=== PATIENT | female | born 1945 | race Caucasian/White ===

== ENCOUNTER 2016-12-19 18:36 | Inpatient (IN) ==
[2016-12-19] MEDS ORDERED: 0.9 % Sodium Chloride 1,000 ML IVC ONE ×2 (19:20→23:50)
[2016-12-19] MEDS ORDERED: Ondansetron 4 MG/2 ML VIAL IVP ONE (19:20)
[2016-12-19] MEDS ORDERED: *HR* Morphine 2 MG/ML SYRINGE IVP ONE (19:20)
[2016-12-19 19:40] LABS: Basophils % 0.1 %; Hematocrit 36.8 % (35.3-44.9); Hemoglobin 11.9 g/dL (11.5-15.4); Immature Granulocytes % 0.4 % (0-4); Lymphocytes # 1.2 K/mcL (0.6-4.6); Lymphocytes % 8.6 %; Mean Corpuscular HGB Conc 32.3 g/dL (31.6-35.5); Mean Corpuscular Hemoglobin 29.6 pg (28.0-33.3); Mean Corpuscular Volume 91.5 fL (83.0-100.0); Mean Platelet Volume 10.3 fL (9.4-12.4); Monocytes # 0.6 K/mcL (0.0-1.3); Neutrophils # 12.1 K/mcL (1.6-8.9); Platelet Count 187 K/mcL (140-400); Red Blood Count 4.02 M/mcL (3.82-4.97); Red Cell Distribution Width 13.5 % (11.5-14.5); Segmented Neutrophils % 86.9 %
[2016-12-19 19:44] LABS: INR 1.3; Prothrombin Time 13.7 Seconds (9.4-12.1)
[2016-12-19 19:55] LABS: Alanine Aminotransferase 15 Units/L (0-55); Albumin 3.2 g/dL (3.5-5.0); Albumin/Globulin Ratio 0.8 (1.1-2.2); Alkaline Phosphatase 81 Units/L (38-126); Amylase 31 Units/L (25-125); Aspartate Amino Transferase 15 Units/L (5-34); BUN/Creatinine Ratio 29 (6-26); Bilirubin,Direct 0.4 mg/dL (0.0-0.5); Bilirubin,Indirect 0.2 mg/dL (0.0-1.2); Bilirubin,Total 0.6 mg/dL (0.2-1.2); Blood Urea Nitrogen 19 mg/dL (7-20); Calcium 9.2 mg/dL (8.6-10.8); Carbon Dioxide 25 mEq/L (19-29); Chloride 103 mEq/L (98-109); Globulin 3.9 g/dL (2.4-3.5); Glucose 121 mg/dL (70-99); Osmolality,Calculated 288 (280-300); Potassium 3.8 mEq/L (3.5-4.5); Sodium 137 mEq/L (136-145); Total Protein 7.1 g/dL (6.0-8.3); eGFR For African Americans > 60 (> 60); eGFR For Non-African Americans > 60 (> 60)
[2016-12-19 19:57] LABS: Lipase < 10 Units/L (8-78)
[2016-12-19 20:17] LABS: Bilirubin,Urine Negative (Negative); Blood,Urine Negative (Negative); Clarity,Urine Cloudy (Clear); Color,Urine Dark Yellow (Yellow); Glucose,Urine (UA) Normal (Normal); Ketones,Urine 80 mg/dL (Negative); Leukocyte Esterase,Urine Moderate (Negative); Nitrite,Urine Negative (Negative); PH,Urine 6.5 pH Units (5.0-8.0); Protein,Urine 30 mg/dL (Neg-Trace); Specific Gravity,Urine 1.027 (1.010-1.025); Urobilinogen,Urine Normal (Normal)
[2016-12-19 20:28] LABS: Mucus,Urine Moderate (Few); Renal Epithelial Cells,Urine Few per hpf (None-Few); Squamous Epithelial Cell,Urine Few per lpf (None-Few)
[2016-12-19 20:29] LABS: RBC,Urine 0-3 per hpf (0-3)
[2016-12-19 20:30] LABS: Bacteria,Urine Few per hpf (None-Few)
[2016-12-19] MEDS ORDERED: Piperacillin/Tazobactam 3.375 GM in D5% in Water 50 ML IVPB ONE (21:44)
[2016-12-19] MEDS ORDERED: *HR* FentaNYL (PF) 100 MCG/2 ML VIAL IVP ONE (22:36)
[2016-12-19] MEDS ORDERED: Lidocaine -MPF 2% 2 ML VIAL ONE ×2 (23:04→23:06)
[2016-12-19] MEDS ORDERED: *HR* Rocuronium Bromide 50 MG/5 ML VIAL ONE (23:04)
[2016-12-19] MEDS ORDERED: Lidocaine -MPF 4% 5 ML AMPUL ONE (23:04)
[2016-12-19] MEDS ORDERED: *HR* Propofol 200 MG/20 ML VIAL IVP ONE (23:05)
[2016-12-19] MEDS ORDERED: *HR* Midazolam HCl 2 MG/2 ML VIAL ONE (23:05)
[2016-12-19] MEDS ORDERED: *HR* FentaNYL (PF) 100 MCG/2 ML VIAL ONE (23:05)
--- NOTE | 2016-12-19 23:39 | Emergency Department Note ---
Disposition Clinical Impression: Pneumoperitoneum of unknown etiology Disposition: Admitted As Inpatient Condition: Fair General Adult HPI - General Chief complaint: ED Abdominal Pain Stated complaint: abdominal pain Time Seen by Provider: 12/19/16 18:46 Source: EMS Limitations: no limitations Nursing Notes Reviewed: Yes Vital Signs Reviewed: Yes - History of Present Illness HPI Narrative: 71-year-old female presents with abdominal pain that started today. Surgical history includes appendectomy, hysterectomy. No significant medical history. Admits to anorexia, nausea, ongoing abdominal pain which worsened with sitting forward. No fever or chills. No abdominal trauma recently. General: No acute distress HEENT: Pupils equal and reactive to light, extraoccular muscle movement is normal, TMS are clear bilaterally. Heart: RRR, No murmor rub or gallop Lungs: lungs clear, no wheezing, rales or ronchi. ABD: Tender diffusely Extremities: No cyanosis, clubbing or edema Neuro: CN 2-12 in tact, no focal deficit. strength 5/5. Medical decision making CT scan is concerning for pneumoperitoneum. Possible etiology of perforated duodenal ulcer. Dr. Niño at bedside for evaluation. Plan to transfer to operating room for surgical intervention. Zosyn given at discretion of Dr. Niño. IV fluids were administered. Remain nothing by mouth. Pain Scale: 7 - Related Data Allergies Allergy/AdvReac Type Severity Reaction Status Date / Time azithromycin [From Zithromax] AdvReac Hives Verified 12/19/16 18:43 gluten AdvReac Gastrointestinal Verified 12/19/16 18:43 Upset phenytoin [From Dilantin] AdvReac Hives Verified 12/19/16 18:43 Sulfa (Sulfonamide AdvReac Hives Verified 12/19/16 18:43 Antibiotics) All systems ED: reviewed and negative except as stated. Past Medical History - Past Medical History Medical history: Reports: GERD, hypertension Psychiatric history: Reports: no psych history - Social History Smoking Status: Never smoker Smokeless Tobacco Status: No Alcohol use: Reports: none Drug use: Reports: none Physical Exam - General Limitations: no limitations General appearance: alert Course Vital Signs Temperature 98.6 F 12/19/16 18:44 Pulse Rate 90 12/19/16 18:44 Respiratory Rate 18 12/19/16 18:44 Blood Pressure 119/73 12/19/16 18:44 O2 Sat by Pulse Oximetry 98 12/19/16 18:44 Temperature 98.6 F 12/19/16 18:44 Pulse Rate 81 12/19/16 22:39 Respiratory Rate 16 12/19/16 23:17 Blood Pressure 134/69 12/19/16 23:17 O2 Sat by Pulse Oximetry 98 12/19/16 22:39 Oxygen Delivery Oxygen Delivery Room Air Medical Decision Making - Lab Data Result diagrams: 12/19/16 19:30 12/19/16 19:30 Lab Results 12/19/16 12/19/16 12/19/16 Range/Units 19:30 19:30 19:30 WBC 13.9 H (4.3-11.1) K/mcL RBC 4.02 (3.82-4.97) M/mcL Hgb 11.9 (11.5-15.4) g/dL Hct 36.8 (35.3-44.9) % MCV 91.5 (83.0-100.0) fL MCH 29.6 (28.0-33.3) pg MCHC 32.3 (31.6-35.5) g/dL RDW 13.5 (11.5-14.5) % Plt Count 187 (140-400) K/mcL MPV 10.3 (9.4-12.4) fL Immature Gran % 0.4 (0-4) % Seg Neutrophils % 86.9 % Lymphocytes % 8.6 % Monocytes % 4.0 % Eosinophils % 0.0 % Basophils % 0.1 % Neutrophils # 12.1 H (1.6-8.9) K/mcL Lymphocytes # 1.2 (0.6-4.6) K/mcL Monocytes # 0.6 (0.0-1.3) K/mcL Eosinophils # 0.0 (0.0-0.6) K/mcL Basophils # 0.0 (0.0-0.2) K/mcL Immature Plt Fraction 5.0 (1.1-6.1) % PT 13.7 H (9.4-12.1) Seconds INR 1.3 Sodium 137 (136-145) mEq/L Potassium 3.8 (3.5-4.5) mEq/L Chloride 103 (98-109) mEq/L Carbon Dioxide 25 (19-29) mEq/L BUN 19 (7-20) mg/dL Creatinine 0.65 (0.57-1.11) mg/dL Est GFR ( Amer) > 60 (> 60) Est GFR (Non-Af Amer) > 60 (> 60) BUN/Creatinine Ratio 29 H (6-26) Glucose 121 H (70-99) mg/dL Calculated Osmolality 288 (280-300) Lactic Acid (0.5-2.2) mmol/L Calcium 9.2 (8.6-10.8) mg/dL Total Bilirubin 0.6 (0.2-1.2) mg/dL Direct Bilirubin 0.4 (0.0-0.5) mg/dL Indirect Bilirubin 0.2 (0.0-1.2) mg/dL AST 15 (5-34) Units/L ALT 15 (0-55) Units/L Alkaline Phosphatase 81 (38-126) Units/L Troponin I (0-0.03) ng/mL Serum Total Protein 7.1 (6.0-8.3) g/dL Albumin 3.2 L (3.5-5.0) g/dL Globulin 3.9 H (2.4-3.5) g/dL Albumin/Globulin Ratio 0.8 L (1.1-2.2) Amylase 31 (25-125) Units/L Lipase < 10 (8-78) Units/L Urine Color (Yellow) Urine Clarity (Clear) Urine pH (5.0-8.0) pH Units Ur Specific [place] (1.010-1.025) Urine Protein (Neg-Trace) mg/dL Urine Glucose (UA) (Normal) mg/dL Urine Ketones (Negative) mg/dL Urine Blood (Negative) Urine Nitrite (Negative) Urine Bilirubin (Negative) Urine Urobilinogen (Normal) mg/dL Ur Leukocyte Esterase (Negative) Urine Microscopic RBC (0-3) per hpf Urine Microscopic WBC (0-3) per hpf Ur Squamous Epith Cells (None-Few) per lpf Ur Renal Epithelial Cell (None-Few) per hpf Urine Bacteria (None-Few) per hpf Urine Mucus (Few) Ur Culture Indicated? (NO) 12/19/16 12/19/16 12/19/16 Range/Units 19:30 19:30 20:10 WBC (4.3-11.1) K/mcL RBC (3.82-4.97) M/mcL Hgb (11.5-15.4) g/dL Hct (35.3-44.9) % MCV (83.0-100.0) fL MCH (28.0-33.3) pg MCHC (31.6-35.5) g/dL RDW (11.5-14.5) % Plt Count (140-400) K/mcL MPV (9.4-12.4) fL Immature Gran % (0-4) % Seg Neutrophils % % Lymphocytes % % Monocytes % % Eosinophils % % Basophils % % Neutrophils # (1.6-8.9) K/mcL Lymphocytes # (0.6-4.6) K/mcL Monocytes # (0.0-1.3) K/mcL Eosinophils # (0.0-0.6) K/mcL Basophils # (0.0-0.2) K/mcL Immature Plt Fraction (1.1-6.1) % PT (9.4-12.1) Seconds INR Sodium (136-145) mEq/L Potassium (3.5-4.5) mEq/L Chloride (98-109) mEq/L Carbon Dioxide (19-29) mEq/L BUN (7-20) mg/dL Creatinine (0.57-1.11) mg/dL Est GFR ( Amer) (> 60) Est GFR (Non-Af Amer) (> 60) BUN/Creatinine Ratio (6-26) Glucose (70-99) mg/dL Calculated Osmolality (280-300) Lactic Acid 0.7 (0.5-2.2) mmol/L Calcium (8.6-10.8) mg/dL Total Bilirubin (0.2-1.2) mg/dL Direct Bilirubin (0.0-0.5) mg/dL Indirect Bilirubin (0.0-1.2) mg/dL AST (5-34) Units/L ALT (0-55) Units/L Alkaline Phosphatase (38-126) Units/L Troponin I 0.01 (0-0.03) ng/mL Serum Total Protein (6.0-8.3) g/dL Albumin (3.5-5.0) g/dL Globulin (2.4-3.5) g/dL Albumin/Globulin Ratio (1.1-2.2) Amylase (25-125) Units/L Lipase (8-78) Units/L Urine Color Dark Yellow (Yellow) Urine Clarity Cloudy A (Clear) Urine pH 6.5 (5.0-8.0) pH Units Ur Specific [place] 1.027 H (1.010-1.025) Urine Protein 30 H (Neg-Trace) mg/dL Urine Glucose (UA) Normal (Normal) mg/dL Urine Ketones 80 H (Negative) mg/dL Urine Blood Negative (Negative) Urine Nitrite Negative (Negative) Urine Bilirubin Negative (Negative) Urine Urobilinogen Normal (Normal) mg/dL Ur Leukocyte Esterase Moderate H (Negative) Urine Microscopic RBC 0-3 (0-3) per hpf Urine Microscopic WBC 5-15 H (0-3) per hpf Ur Squamous Epith Cells Few (None-Few) per lpf Ur Renal Epithelial Cell Few (None-Few) per hpf Urine Bacteria Few (None-Few) per hpf Urine Mucus Moderate H (Few) Ur Culture Indicated? YES A (NO) Critical Care Time Critical Care Time: Yes Total Critical Care Time: 35 Attestation: Findings consistent with pneumoperitoneum. Patient was taken emergently to the operating room. Greater than 35 minutes of critical care time was better assess tenderness acutely ill patient with surgical abdominal emergency. Critical care time was excluding billable procedures.
[2016-12-19] MEDS: Ringers Solution, Lactated 1,000 ML ONE (23:40)
[2016-12-19] MEDS ORDERED: Ondansetron 4 MG/2 ML VIAL IVP PRN (23:50)
--- NOTE | 2016-12-19 23:56 | General Surg History&Physical ---
Date of Encounter: 12/19/16 Time of Encounter: 23:54 Assessment and Plan (1) Pneumoperitoneum of unknown etiology Current Visit: Yes Status: Acute 71F with significant abdominal pain, leukocytosis, free air; concern for perforated viscus - NPO _IVF -ABX - pain control - consent for ex lap The assessment and plan as outlined above was discussed with the patient and/or family members who expressed understanding and agreement. All questions were answered. History of Present Illness Chief complaint: abdominal pain HPI: Ms. Parra is a 71 year old female who presents with 1 day history of worsening abdominal pain. The pain is localized to mid abdomen and R abdomen, non radiating with no identifiable alleviating or exacerbating factors; (-) fevers, chills, chest pain, shortness of breath. NO associated diarrhea. Due to the severity of the pain she presented to the ED for further evaluation. Past Med Surg Social Fam HX - Past Medical History Medical history: GERD, hypertension Psychiatric history: no psych history - Past Surgical History Surgical History: appendectomy, hysterectomy - Social History Smoking Status: Never smoker Smokeless Tobacco Status: No Alcohol use: none Drug use: none - Additional Family History Additional family history: non contributory Medications and Allergies 3 Allergy/AdvReac Type Severity Reaction Status Date / Time azithromycin [From Zithromax] AdvReac Hives Verified 12/19/16 18:43 gluten AdvReac Gastrointestinal Verified 12/19/16 18:43 Upset phenytoin [From Dilantin] AdvReac Hives Verified 12/19/16 18:43 Sulfa (Sulfonamide AdvReac Hives Verified 12/19/16 18:43 Antibiotics) Review of Systems All systems PM: A 10-system review of systems was performed and is negative for pertinent findings except as documented above in the HPI. General Surgery Exam Initial Vital Signs Temp Pulse Resp BP Pulse Ox 98.6 F 90 18 119/73 98 12/19/16 18:44 12/19/16 18:44 12/19/16 18:44 12/19/16 18:44 12/19/16 18:44 - General physical appearance well developed, well nourished, no distress - Eyes other (no scleral icterus) - Respiratory normal expansion, normal respiratory effort, clear to auscultation - Cardiovascular Cardiovascular exam: Present: RRR - Abdomen Abdomen general surgery: Present: soft, tender ((-)garcia's; pain primarily at R side/RLQ) Abdominal Tenderness: Present: RLQ Hernia: Present: none - Integumentary Integumentary general surgery: Present: warm and dry - Neurologic Present: CN 2-12 grossly intact - Psychiatric Psychiatric general surgery: Present: A&Ox3 Results - Labs 12/19/16 19:30 12/19/16 19:30 Abnormal lab results WBC 13.9 K/mcL (4.3-11.1) H 12/19/16 19:30 Neutrophils # 12.1 K/mcL (1.6-8.9) H 12/19/16 19:30 PT 13.7 Seconds (9.4-12.1) H 12/19/16 19:30 BUN/Creatinine Ratio 29 (6-26) H 12/19/16 19:30 Glucose 121 mg/dL (70-99) H 12/19/16 19:30 Albumin 3.2 g/dL (3.5-5.0) L 12/19/16 19:30 Globulin 3.9 g/dL (2.4-3.5) H 12/19/16 19:30 Albumin/Globulin Ratio 0.8 (1.1-2.2) L 12/19/16 19:30 Urine Clarity Cloudy (Clear) A 12/19/16 20:10 Ur Specific [place] 1.027 (1.010-1.025) H 12/19/16 20:10 Urine Protein 30 mg/dL (Neg-Trace) H 12/19/16 20:10 Urine Ketones 80 mg/dL (Negative) H 12/19/16 20:10 Ur Leukocyte Esterase Moderate (Negative) H 12/19/16 20:10 Urine Microscopic WBC 5-15 per hpf (0-3) H 12/19/16 20:10 Urine Mucus Moderate (Few) H 12/19/16 20:10 Ur Culture Indicated? YES (NO) A 12/19/16 20:10 All other labs normal. - Imaging CT scan - abdomen: report reviewed, image reviewed CT scan - pelvis: report reviewed (free air, thickening near duodenum; (+) diverticulosis; no obvious inflammation near sigmoid; no abscess), image reviewed
--- NOTE | 2016-12-19 23:57 | Anesthesia Evaluation PreOp ---
Date of Encounter: 12/19/16 Time of Encounter: 23:54 - Past History Planned Operation: Expl Lap Cardiac History: HTN (maintained on Metoprolol), Other (Hx MVP s/p MV repair 2012. ECHO 04.22.2015 - LVEF - 60%, mild LV dysfx, Moderate LAE, Mild Aortic Regurg. NO evidence of PUlm HTN. 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), Other (Vertigo maintained on Meclizine) Other Medical History: Renal (REcurrent UTIs,), GERD (IBS) Anesthesia History: No Prior Anesthetic Complications, Past Anesthesia ( Colonoscopy, Endoscopy, Mitral Valve Repair 10/2012, Appy 1983, Hyster 1995,) Alcohol Use: none Drug use: none Medications and Allergies 3 Allergy/AdvReac Type Severity Reaction Status Date / Time azithromycin [From Zithromax] AdvReac Hives Verified 12/19/16 18:43 gluten AdvReac Gastrointestinal Verified 12/19/16 18:43 Upset phenytoin [From Dilantin] AdvReac Hives Verified 12/19/16 18:43 Sulfa (Sulfonamide AdvReac Hives Verified 12/19/16 18:43 Antibiotics) - Meds/Allergy Pre-op Review Medications Reviewed: Yes Allergies Reviewed: Yes Beta Blockers on Current Med List: Yes (Metoprolol) If Beta Blockers taken, Date/Time (Last Dose taken): 12/19/16 @ 1700 Anesthesia Results - Labs 12/19/16 19:30 12/19/16 19:30 Laboratory Results Impressions Abdomen/Pelvis CT 12/19/16 19:20 IMPRESSION: 1. Pneumoperitoneum with multiple locules intraperitoneal gas centered around the 1st portion of the duodenum. Findings compatible with perforated viscus and are highly suggestive of perforated duodenal ulcer given the focal extraluminal gas surrounding the duodenum. 2. Soft tissue gas within the anterior chest wall with nodular density within the left breast with central hyperattenuating focus within the nodular density. Findings suggestive of changes of recent biopsy. Recommend clinical correlation for recent procedure to the left breast. 3. Colonic diverticulosis with wall thickening of the sigmoid colon which is nonspecific. Findings may be related to chronic diverticular disease, however, recommend correlation with recent colonoscopy. No definite diverticulitis identified. 4. 7 mm nonobstructing right renal stone. D/ / Sage Olivarez MD / Sage Olivarez MD Interpreting Provider: Sage Olivarez MD Anesthesia Exam Vital Signs Temp Pulse Resp BP Pulse Ox 12/19/16 23:17 16 134/69 12/19/16 22:39 81 16 137/69 98 12/19/16 21:37 70 16 111/60 97 12/19/16 19:49 74 16 128/69 100 12/19/16 18:44 98.6 F 90 18 119/73 98 Intake and Output 12/19/16 12/19/16 12/19/16 07:59 15:59 23:59 Other: Stool Characteristics Normal for Patient Stool Color Brown Weight 48.534 kg Patient Weight 12/19/16 23:59 Weight 48.534 kg Height: 5'4" Weight: 140# BMI = 20 NPO (# of Hours): 0800 Water, [Solids/Food - >24hrs] Pain Scale Used: Numeric (1 - 10) - HEENT Pupil (Motor): Pupils equal, EOMI Mallampati: III Teeth: Normal Oral Opening: Less than or equal to 3 (recessed mandible with protruding teeth. DENIES hx of difficult airway) - AUGER MILL OPERATOR LOC: Oriented, Confused AUGER MILL OPERATOR Sensory: Normal: RUE, LUE, RLE, LLE, Face - Cardiac Rhythm: Regular Murmur: None - Pulmonary Breath Sounds: bilateral Clear Respiratory Effort: Symmetrical Anesthesia Assess/Plan ASA Score: 2, E Modified [place] Scale for Level of Consciousness: Cooperative, oriented, and tranquil Anesthetic Plan: General Monitoring Plan: Standard Monitors Recovery Plan: PACU Anes Supervising Prov Stmt: Pt seen/evaluated, R&B Discussed, questions answered and consent obtained. Benito Choudhury MD
[2016-12-20] MEDS ORDERED: Acetaminophen IV 1,000 MG/100 ML INFUS..BTL ONE (00:13)
[2016-12-20] MEDS ORDERED: Lacri-Lube 3.5 GM TUBE ONE (00:37)
[2016-12-20] MEDS ORDERED: EPHEDrine 50 MG/ML VIAL ONE (00:42)
[2016-12-20] MEDS ORDERED: Dexamethasone 4 MG/ML VIAL ONE (01:38)
[2016-12-20] MEDS ORDERED: Ondansetron 4 MG/2 ML VIAL ONE (01:38)
[2016-12-20] MEDS ORDERED: *HR* Magnesium Sulfate 1 GM/2 ML VIAL ONE (01:40)
[2016-12-20] MEDS ORDERED: Neostigmine Methylsulfate 3 MG/3 ML SYRINGE ONE (01:46)
[2016-12-20] MEDS: Ringers Solution, Lactated 1,000 ML ONE (02:02)
[2016-12-20] MEDS ORDERED: *HR* HYDROmorphone 2 MG/ML SYRINGE ONE (02:17)
--- NOTE | 2016-12-20 02:47 | Operative Note ---
Date of procedure: 12/20/16 Pre-op diagnosis: perforated viscus Post-op diagnosis: other (negative ex lap) Procedure: exploratory laparotomy Implants: none Complications: none Anesthesia: BUSHRA Surgeon: Fercho Niño Slab Tripper Other: Alberto Samayoa Estimated blood loss (cc): 20 Specimen: none Condition: stable Disposition: PACU Procedure in Detail: Patient was brought into the operating room suite. Placed in the supine position. SCDs were placed. The patient underwent smooth induction of anesthesia. preoperative antibiotics were given. A schrader catheter was placed using sterile technique. The patient was prepped and draped in the usual fashion. A timeout was held identifying correct patient pathology and procedure. After the agreement I began the procedure. I started by creating a limited upper midline incision. Dissected through the soft tissue using electrocautery until I was in the abdomen. I quickly identified the stomach. More specifically I was able to identify the pylorus. I went on to investigate the duodenum. I had limited exposure but was not able to appreciate any gastric and bilious contamination. I then extended the incision and ran the bowel from the ligament of treitz to the rectum. There was NO evidence of gross abdominal spillage of enteric or colonic contents. No evidence of ischemia, obstruction, or non viability of bowel. I investigated down into the pelvis. I then started at the top again, beginning with the stomach. At the duodenum, I performed a full linnea maneuver. I was able to appreciate the head of the pancreas. I also inserted my finger into the lesse sac. Again there was no contamination. I ran the bowel again. No evidence of bowel perforation, intraabdominal contamination, ischemia, obstruction. I filled the abdomen with saline. Occluded the 3rd portion of the duodenum and asked anesthesia to insufflate the stomach using the NG tube. There was no evidence of bubbles to suggest perforation. I ran the bowel again. At this point I concluded that the CT scan my intraoperative findings did not match. I decided to conclude the procedure. The only thing to mention was that her rectum was full of soft stool. I did not appreciate any significant diverticulosis or diverticulitis nor any pelvic abscesses or interloop adhesions. I closed the fascia usng a looped PDS in a running fashion. I used 3-0 vicryl to close the dermal layer. I used the skin stapler to reapproximate the skin. The patient tolerated the procedure well and was transported to PACU in stable condition
--- NOTE | 2016-12-20 03:03 | Anesthesia Evaluation Post Op ---
Date of Encounter: 12/20/16 Time of Encounter: 03:02 - Vital Signs Vital Signs: Vital Signs/O2 Sat/Glucose, Most Current Temp Pulse Resp BP Pulse Ox 12/20/16 02:54 99.4 F 71 16 134/68 95 12/20/16 02:44 70 16 130/69 92 12/20/16 02:34 65 10 145/73 98 12/20/16 02:24 98.2 F 63 18 124/60 92 12/19/16 23:17 16 134/69 - Lungs Lungs: Clear Ascult./Percussion - Airway Airway: Non-obstructed - Cardiovascular Regular Rate - Mental Status Mental Status: Alert & Oriented, Answers Appropriately, Asleep with brisk response to light stimulation - Pain Pain Scale: 0 Pain Scale used: Numeric (1 - 10) - Nausea Vomiting Nausea Vomiting: Not Present - Hydration Hydration: Tolerates oral liquids, Able to void - Discharge PostOp Status: Transfer Patient to floor Anes Supervising Prov Stmt: Pt seen/evaluated, VSS and pt has met criteria for discharge to floor. - MD Kei
[2016-12-20] MEDS ORDERED: Ondansetron 4 MG/2 ML VIAL IVP PRN (05:02)
[2016-12-20] MEDS ORDERED: *HR* HYDROmorphone 20 MG/20 ML PCA IVC PRN (05:02)
[2016-12-20] MEDS ORDERED: *HR* Enoxaparin 40 MG/0.4 ML SYRINGE SQ SCH (06:00)
[2016-12-20] MEDS: Pantoprazole 40 MG VIAL IVP SCH ×2 (07:22→18:04)
[2016-12-20] MEDS: D5% in 0.9% NACL 1,000 ML IVC SCH (07:24)
[2016-12-20] MEDS: *HR* Enoxaparin 40 MG/0.4 ML SYRINGE SQ SCH (07:24)
[2016-12-20] MEDS ORDERED: Piperacillin/Tazobactam 3.375 GM in D5% in Water 50 ML IVPB SCH ×2 (08:00)
[2016-12-20] MEDS: Metoprolol XL (24 HR) Succ 50 MG TAB.ER.24H PO SCH (11:28)
[2016-12-21] MEDS: D5% in 0.9% NACL 1,000 ML IVC SCH (02:16)
[2016-12-21 05:40] LABS: BUN/Creatinine Ratio 22 (6-26); Blood Urea Nitrogen 12 mg/dL (7-20); Calcium 8.1 mg/dL (8.6-10.8); Carbon Dioxide 26 mEq/L (19-29); Chloride 109 mEq/L (98-109); Glucose 141 mg/dL (70-99); Magnesium 1.9 mg/dL (1.6-2.6); Osmolality,Calculated 292 (280-300); Phosphorous 1.6 mg/dL (2.3-4.7); Potassium 3.7 mEq/L (3.5-4.5); Sodium 140 mEq/L (136-145); eGFR For African Americans > 60 (> 60); eGFR For Non-African Americans > 60 (> 60)
[2016-12-21] MEDS: *HR* Enoxaparin 40 MG/0.4 ML SYRINGE SQ SCH (05:43)
[2016-12-21] MEDS: Pantoprazole 40 MG VIAL IVP SCH ×2 (05:43→17:29)
[2016-12-21] MEDS: Metoprolol XL (24 HR) Succ 50 MG TAB.ER.24H PO SCH (10:40)
[2016-12-21] MEDS: Aspirin Enteric Coated 81 MG Tablet PO SCH (10:45)
[2016-12-21] MEDS: Multivit/Ca/Min/Fe/FA 1 TAB TABLET PO SCH (10:45)
[2016-12-21] MEDS: Cholecalciferol (D-3) 1,000 UNIT TABLET PO SCH (10:45)
--- NOTE | 2016-12-21 14:08 | General Surgery Progress Note ---
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 - activity as tolerated - awaiting return of bowel function - found out results of breast biopsy today: will discuss with her concerning the results (2) Hyperglycemia Current Visit: Yes Status: Acute likely a combination of stress from surgery and IVF - institute low dose insulin if glucose is consistently above 150 Subjective Patient reports: no new complaints, feels better, still having pain, pain is less, no flatus, no bowel movement Objective Vital Signs - Last 8 Hours Temp Pulse Resp BP Pulse Ox 12/21/16 11:05 97.6 F 72 18 116/67 93 12/21/16 06:50 98.3 F 74 18 112/64 92 Intake and Output 12/20/16 12/21/16 12/21/16 23:59 07:59 15:59 Intake Total 100 / 100 0 / 0 Output Total 0 / 0 550 / 550 300 / 300 Balance 100 / 100 -550 / -550 -300 / -300 Intake: IV Fluids 100 / 100 D5% And 0.9% Nacl 1000 Ml 1,000 100 / 100 ML @ 100 mls/hr IVC .Q10H [facility] Rx#:[id number] Oral 0 / 0 0 / 0 Output: Urine 0 / 0 0 / 0 Catheter 550 / 550 100 / 100 Gastric Drainage 200 / 200 Other: Meal NPO NPO Weight 49.5 kg Blood Glucose* 135 131 134 Patient Weight 12/21/16 23:59 Weight 49.5 kg - General physical appearance well developed, well nourished - Respiratory normal expansion, normal respiratory effort - Cardiovascular Cardiovascular exam: Present: RRR - Abdomen Abdomen: Present: soft, tender - Incision Incision: Present: clean and dry, intact - Neurologic CN 2-12 grossly intact - Psychiatric oriented to time, oriented to person, oriented to place - Labs 12/19/16 19:30 12/21/16 05:22 Diabetes panel 12/21/16 Range/Units 05:22 Sodium 140 (136-145) mEq/L Potassium 3.7 (3.5-4.5) mEq/L Chloride 109 (98-109) mEq/L Carbon Dioxide 26 (19-29) mEq/L BUN 12 (7-20) mg/dL Creatinine 0.55 L (0.57-1.11) mg/dL Glucose 141 H (70-99) mg/dL Calcium 8.1 L (8.6-10.8) mg/dL Calcium panel 12/21/16 Range/Units 05:22 Calcium 8.1 L (8.6-10.8) mg/dL Phosphorus 1.6 L (2.3-4.7) mg/dL Pituitary panel 12/21/16 Range/Units 05:22 Sodium 140 (136-145) mEq/L Potassium 3.7 (3.5-4.5) mEq/L Chloride 109 (98-109) mEq/L Carbon Dioxide 26 (19-29) mEq/L BUN 12 (7-20) mg/dL Creatinine 0.55 L (0.57-1.11) mg/dL Glucose 141 H (70-99) mg/dL Calcium 8.1 L (8.6-10.8) mg/dL Adrenal panel 12/21/16 Range/Units 05:22 Sodium 140 (136-145) mEq/L Potassium 3.7 (3.5-4.5) mEq/L Chloride 109 (98-109) mEq/L Carbon Dioxide 26 (19-29) mEq/L BUN 12 (7-20) mg/dL Creatinine 0.55 L (0.57-1.11) mg/dL Glucose 141 H (70-99) mg/dL Calcium 8.1 L (8.6-10.8) mg/dL - VTE Documentation of Mechanical Device: Graduated compression elastic hosiery Consult Discharge Plan - Plan Referrals: Jimbo De Paz MD [Primary Care Provider] -
[2016-12-21] MEDS ORDERED: Magnesium Sulfate 1 GM in D5% in Water 100 ML IVPB ONE (14:10)
[2016-12-21] MEDS: D5% in 0.45% NACL w KCl 20 MEQ/1,000 ML MLS IVC SCH (17:29)
[2016-12-21] MEDS ORDERED: Ketorolac 15 MG/ML VIAL IVP ONE (17:49)
[2016-12-22] MEDS: Pantoprazole 40 MG VIAL IVP SCH (05:08)
[2016-12-22] MEDS: *HR* Enoxaparin 40 MG/0.4 ML SYRINGE SQ SCH (05:08)
[2016-12-22] MEDS: Metoprolol XL (24 HR) Succ 50 MG TAB.ER.24H PO SCH (08:43)
[2016-12-22] MEDS: Multivit/Ca/Min/Fe/FA 1 TAB TABLET PO SCH (08:43)
[2016-12-22] MEDS: Aspirin Enteric Coated 81 MG Tablet PO SCH (08:43)
[2016-12-22] MEDS: Cholecalciferol (D-3) 1,000 UNIT TABLET PO SCH (08:44)
[2016-12-22] MEDS: D5% in 0.45% NACL w KCl 20 MEQ/1,000 ML MLS IVC SCH ×2 (08:45→20:51)
--- NOTE | 2016-12-22 09:37 | General Surgery Progress Note ---
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 - add tylenol, ibuprofen, gabapentin, tramadol for adjuvant therapy - activity as tolerated - advance to full clears, not just sips - For over the weekend: IF - she tolerates CLD - continues to have bowel function (flatus or bowel movement) - abdomen is less distended on exam and by patient standards THEN - advance to regular diet - if she tolerates regular diet, has adequate pain control with PO pain meds - is able to resume regular activity At that point, she will be okay for discharge (2) Hyperglycemia Current Visit: Yes Status: Acute blood sugars less than 150; cont to monitor; will plan to SLIV when she is tolerating regular diet (3) Abnormal breast biopsy Current Visit: Yes Status: Acute adenosis, sclerosing adenosis, florid ductal hyperplasia - discussed with patient - will follow up in clinic and plan for intervention once she has recovered from this surgery Subjective Patient reports: no new complaints, feels better, still having pain, pain is less, flatus ('a little' per patient), no bowel movement Objective Vital Signs - Last 8 Hours Temp Pulse Resp BP Pulse Ox 12/22/16 07:40 98.0 F 76 16 113/64 92 12/22/16 04:04 98.6 F 72 16 108/76 95 Intake and Output 12/21/16 12/22/16 12/22/16 23:59 07:59 15:59 Intake Total 260 / 260 1000 / 1000 Output Total 300 / 300 0 / 0 Balance -40 / -40 1000 / 1000 Intake: IV Fluids 260 / 260 1000 / 1000 KCl 20mEq IN D5%-0.45 NACL 20 1000 / 1000 meq In 1,000 ml @ 75 mls/hr IVC .[id number] [facility] Rx#:[id number] Sodium Phosphate 30 MMOL In 0.9 260 / 260 % Sodium Chloride 250 ML @ 42 mls/hr IVPB ONCE ONE Rx#: [id number] Oral 0 / 0 0 / 0 Output: Urine 300 / 300 0 / 0 Other: Meal NPO - General physical appearance well developed, well nourished, no distress - ENT normocephalic - Respiratory normal expansion, normal respiratory effort - Cardiovascular Cardiovascular exam: Present: RRR - Abdomen Abdomen: Present: soft, tender Hernia: none - Incision Incision: Present: clean and dry, intact - Neurologic CN 2-12 grossly intact - Psychiatric oriented to time, oriented to person, oriented to place - Labs 12/19/16 19:30 12/21/16 05:22 - VTE Documentation of Mechanical Device: Intermittent pneumatic compression device Consult Discharge Plan - Plan Referrals: Jimbo De Paz MD [Primary Care Provider] - 01/01/17 2:15 pm
[2016-12-22 10:03] LABS: Basophils % 0.1 %; Eosinophils % 0.3 %; Hematocrit 32.1 % (35.3-44.9); Hemoglobin 10.3 g/dL (11.5-15.4); Immature Granulocytes % 0.4 % (0-4); Lymphocytes # 1.1 K/mcL (0.6-4.6); Lymphocytes % 13.5 %; Mean Corpuscular HGB Conc 32.1 g/dL (31.6-35.5); Mean Corpuscular Hemoglobin 29.7 pg (28.0-33.3); Mean Corpuscular Volume 92.5 fL (83.0-100.0); Mean Platelet Volume 10.4 fL (9.4-12.4); Monocytes # 0.5 K/mcL (0.0-1.3); Monocytes % 6.4 %; Neutrophils # 6.2 K/mcL (1.6-8.9); Platelet Count 155 K/mcL (140-400); Red Blood Count 3.47 M/mcL (3.82-4.97); Red Cell Distribution Width 13.7 % (11.5-14.5); Segmented Neutrophils % 79.3 %
[2016-12-22 10:14] LABS: BUN/Creatinine Ratio 15 (6-26); Blood Urea Nitrogen 7 mg/dL (7-20); Calcium 7.8 mg/dL (8.6-10.8); Carbon Dioxide 27 mEq/L (19-29); Chloride 108 mEq/L (98-109); Glucose 132 mg/dL (70-99); Magnesium 1.7 mg/dL (1.6-2.6); Osmolality,Calculated 290 (280-300); Phosphorous 1.9 mg/dL (2.3-4.7); Potassium 3.5 mEq/L (3.5-4.5); Sodium 140 mEq/L (136-145); eGFR For African Americans > 60 (> 60); eGFR For Non-African Americans > 60 (> 60)
[2016-12-22] MEDS ORDERED: Acetaminophen 325 MG TABLET PO PRN (11:24)
[2016-12-22] MEDS ORDERED: traMADol 50 MG TABLET PO PRN (11:25)
[2016-12-22] MEDS ORDERED: *HR* HYDROmorphone (PF) 1 MG/ML SYRINGE IVP PRN (11:28)
[2016-12-22] MEDS ORDERED: Potassium Phosphate 44 MEQ in 0.9 % Sodium Chloride 250 ML IVPB ONE (11:37)
[2016-12-22] MEDS: Gabapentin 300 MG CAPSULE PO SCH ×2 (14:53→20:50)
[2016-12-22] MEDS: Ibuprofen 600 MG TABLET PO SCH (14:53)
[2016-12-23] MEDS: Ibuprofen 600 MG TABLET PO SCH ×4 (01:45→23:46)
[2016-12-23] MEDS: *HR* Enoxaparin 40 MG/0.4 ML SYRINGE SQ SCH (06:35)
[2016-12-23] MEDS: Cholecalciferol (D-3) 1,000 UNIT TABLET PO SCH (09:25)
[2016-12-23] MEDS: Aspirin Enteric Coated 81 MG Tablet PO SCH (09:25)
[2016-12-23] MEDS: Multivit/Ca/Min/Fe/FA 1 TAB TABLET PO SCH (09:25)
[2016-12-23] MEDS: Gabapentin 300 MG CAPSULE PO SCH ×3 (09:25→21:24)
[2016-12-23] MEDS: Metoprolol XL (24 HR) Succ 50 MG TAB.ER.24H PO SCH (09:25)
[2016-12-23] MEDS: D5% in 0.45% NACL w KCl 20 MEQ/1,000 ML MLS IVC SCH (09:30)
--- NOTE | 2016-12-23 10:44 | General Surgery Progress Note ---
Date of Encounter: 12/23/16 Time of Encounter: 10:25 - Assessment and Plan (1) Pneumoperitoneum of unknown etiology Current Visit: Yes Status: Acute The patient is status post laparotomy with a extensive search for source of pneumoperitoneum. No source was identified. The preoperative pain syndrome is gone. She is tolerating clear liquids. We will advance her to full liquids. Subjective Narrative: The patient states that she feels better today. She has incisional pain but her preoperative pain syndrome is completely gone. She is tolerating clear liquids and would like to advance to full liquids. Her incision is in excellent condition. Her laboratory values are within normal limits. We will advance to full liquids. She is doing quite well Objective Vital Signs - Last 8 Hours Temp Pulse Resp BP Pulse Ox 12/23/16 06:42 97.3 F L 62 16 118/74 93 12/23/16 04:29 97.8 F 60 16 110/68 95 Intake and Output 12/22/16 12/23/16 12/23/16 23:59 07:59 15:59 Intake Total 1000 / 1000 0 / 0 1000 / 1000 Output Total 0 / 0 1900 / 1900 400 / 400 Balance 1000 / 1000 -1900 / -1900 600 / 600 Intake: IV Fluids 1000 / 1000 1000 / 1000 KCl 20mEq IN D5%-0.45 NACL 20 1000 / 1000 1000 / 1000 meq In 1,000 ml @ 75 mls/hr IVC .[id number] [facility] Rx#:[id number] Oral 0 / 0 0 / 0 Output: Urine 0 / 0 1900 / 1900 400 / 400 Other: # Bowel Movements 0 Weight 58.4 kg Patient Weight 12/23/16 23:59 Weight 58.4 kg - General physical appearance well developed, well nourished, no pain - Respiratory normal expansion, normal respiratory effort, clear to percussion, clear to auscultation - Cardiovascular Cardiovascular exam: Present: RRR, no murmurs/rubs/gallops - Abdomen Abdomen: Present: bowel sounds present, soft, non tender - Incision Incision: Present: clean and dry - Neurologic normal coordination, normal sensation - Psychiatric oriented to time, oriented to person, oriented to place, speech is normal, memory intact - Labs 12/22/16 09:52 12/22/16 09:52 - VTE Documentation of Mechanical Device: Intermittent pneumatic compression device Consult Discharge Plan - Plan Referrals: Jimbo De Paz MD [Primary Care Provider] - 01/01/17 2:15 pm
[2016-12-24] MEDS: D5% in 0.45% NACL w KCl 20 MEQ/1,000 ML MLS IVC SCH ×2 (01:59→16:26)
[2016-12-24] MEDS: *HR* Enoxaparin 40 MG/0.4 ML SYRINGE SQ SCH (06:11)
[2016-12-24] MEDS: Ibuprofen 600 MG TABLET PO SCH ×2 (08:45→16:25)
[2016-12-24] MEDS: Gabapentin 300 MG CAPSULE PO SCH ×3 (08:45→21:17)
[2016-12-24] MEDS: Aspirin Enteric Coated 81 MG Tablet PO SCH (08:45)
[2016-12-24] MEDS: Metoprolol XL (24 HR) Succ 50 MG TAB.ER.24H PO SCH (08:46)
[2016-12-24] MEDS: Cholecalciferol (D-3) 1,000 UNIT TABLET PO SCH (08:46)
[2016-12-24] MEDS: Multivit/Ca/Min/Fe/FA 1 TAB TABLET PO SCH (08:46)
--- NOTE | 2016-12-24 11:18 | General Surgery Progress Note ---
Date of Encounter: 12/24/16 Time of Encounter: 10:55 - Assessment and Plan (1) Pneumoperitoneum of unknown etiology Current Visit: Yes Status: Acute The patient is status post laparotomy with a extensive search for source of pneumoperitoneum. No source was identified. The preoperative pain syndrome is gone. She is tolerating clear liquids. We will advance her to full liquids. 12/24/2016 The patient tolerated full liquids for well. She has had multiple bowel movements yesterday. She has no abdominal pain. We will plan to advance her regular diet. Anticipate discharge tomorrow. Subjective Narrative: The patient is doing quite well today. She is tolerating full liquids. We will plan to move her to a regular diet. She is having bowel movements. She had a normal bowel movement followed by some diarrhea yesterday. She has no abdominal pain. Progressing well. Objective Vital Signs - Last 8 Hours Temp Pulse Resp BP Pulse Ox 12/24/16 10:01 97.2 F L 67 16 143/83 99 12/24/16 06:55 98.1 F 61 16 137/88 96 12/24/16 03:26 98.3 F 63 16 133/68 96 Intake and Output 12/23/16 12/24/16 12/24/16 23:59 07:59 15:59 Intake Total 360 / 360 950 / 950 240 / 240 Output Total 500 / 500 500 / 500 900 / 900 Balance -140 / -140 450 / 450 -660 / -660 Intake: IV Fluids 950 / 950 KCl 20mEq IN D5%-0.45 NACL 20 950 / 950 meq In 1,000 ml @ 75 mls/hr IVC .[id number] [facility] Rx#:[id number] Oral 360 / 360 0 / 0 240 / 240 Output: Urine 500 / 500 500 / 500 900 / 900 Other: Meal FULL Full Percent of Meal Consumed 0% Stool Size Small Moderate Stool Consistency formed liquid Stool Color Brown Green # Voids 1 # Bowel Movements 1 0 1 Weight 59.3 kg Patient Weight 12/24/16 23:59 Weight 59.3 kg - General physical appearance well developed, well nourished - Respiratory normal expansion, normal respiratory effort, clear to percussion, clear to auscultation - Cardiovascular Cardiovascular exam: Present: RRR, no murmurs/rubs/gallops - Abdomen Abdomen: Present: bowel sounds present, soft, non tender - Incision Incision: Present: clean and dry - Neurologic normal coordination, normal sensation - Psychiatric oriented to time, oriented to person, oriented to place, speech is normal, memory intact - Labs 12/22/16 09:52 12/22/16 09:52 - VTE Documentation of Mechanical Device: Intermittent pneumatic compression device Consult Discharge Plan - Plan Referrals: Jimbo De Paz MD [Primary Care Provider] - 01/01/17 2:15 pm
--- NOTE | 2016-12-24 19:28 | Electrocardiograph Report ---
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
[2016-12-25] MEDS: Ibuprofen 600 MG TABLET PO SCH ×2 (00:11→09:26)
[2016-12-25] MEDS: *HR* Enoxaparin 40 MG/0.4 ML SYRINGE SQ SCH (06:08)
[2016-12-25] MEDS: D5% in 0.45% NACL w KCl 20 MEQ/1,000 ML MLS IVC SCH (06:09)
[2016-12-25 07:26] VITALS: BP 122/68
--- NOTE | 2016-12-25 08:49 | Discharge Summary ---
Date of Encounter: 12/25/16 Time of Encounter: 08:45 - Discharge Diagnosis (1) Pneumoperitoneum of unknown etiology Priority: Primary Status: Acute Comments: s/p exploratory laparotomy with no identifiable perforation to account or pneumoperitoneum; Patient does have diverticulosis; Current hypothesis is that she may have had a small perforation from a diverticulum that sealed itself off. Fortunately for the patient her stool was too thick to leak through the hole, allowing it time to heal; (2) Hyperglycemia Priority: Secondary Status: Acute Comments: likely due to stress from surgery, sepsis, and IVF administration; as her sepsis resolved and as she improved from her surgery and a diet was initiated, prompting the discontinuation of her IVF, her hyperglycemia improved as well (3) Abnormal breast biopsy Priority: Secondary Status: Acute Comments: Florid ductal hyperplasia, adenosis, and sclerosing adenosis; no identifiable malignany; discussed with patient concerning the results; will follow up in clinic and discuss further management - Discharge Medications Prescriptions: Amoxicillin 875 mg PO BID #20 tablet Tramadol HCl [Ultram] 50 mg PO TID PRN 7 Days #21 tab PRN Reason: Pain Home Medications: Aspirin [Lo-Dose Aspirin EC] 01/23/16 [History] Calcium 01/23/16 [History] Claritin 01/23/16 [History] Entocort EC 01/23/16 [History] Lomotil 2.5 mg/0.025 mg 01/23/16 [History] Meclizine HCl 01/23/16 [History] Metoprolol Succinate 01/23/16 [History] MiraLAX 01/23/16 [History] Multivitamin 01/23/16 [History] Omeprazole 01/23/16 [History] Probiotic 01/23/16 [History] Triamcinolone Acet 0.1% CRM 01/23/16 [History] Tylenol 01/23/16 [History] Vitamin B Complex 01/23/16 [History] Vitamin D3 01/23/16 [History] Voltaren 01/23/16 [History] Alendronate Sodium 70 mg PO QWEEK 12/20/16 [History] Aspirin [Lo-Dose Aspirin EC] 81 mg PO DAILY 12/20/16 [History] Calcium Carbonate [Calcium] 600 mg PO DAILY 12/20/16 [History] Cholecalciferol (Vitamin D3) [Vitamin D3] 2,000 unit PO DAILY 12/20/16 [History] Diphenoxylate/Atropine [Lomotil 2.5 mg/0.025 mg] 1 tab PO BID PRN 12/20/16 [ History] Estradiol [Estrace] 1 gm VG 2XW 12/20/16 [History] Metoprolol XL (24 HR) Succ [Toprol Xl] 50 mg PO DAILY 12/20/16 [History] Multivit with Calcium,Iron,Min [One Daily Women's] 1 tab PO DAILY 12/20/16 [ History] Amoxicillin 875 mg PO BID #20 tablet 12/25/16 [Rx] Tramadol HCl [Ultram] 50 mg PO TID PRN 7 Days #21 tab 12/25/16 [Rx] Allergies/Adverse Reactions: 3 Allergy/AdvReac Type Severity Reaction Status Date / Time azithromycin AdvReac Hives Verified 04/02/15 12:22 dicyclomine [From Bentyl] AdvReac Hives Verified 04/02/15 12:22 gluten AdvReac Gastrointestinal Verified 12/19/16 18:43 Upset phenytoin [From Dilantin] AdvReac Hives Verified 04/02/15 12:22 Sulfa (Sulfonamide AdvReac Hives Verified 04/02/15 12:22 Antibiotics) General Surgery Exam Initial Vital Signs Temp Pulse Resp BP Pulse Ox 98.6 F 90 18 119/73 98 12/19/16 18:44 12/19/16 18:44 12/19/16 18:44 12/19/16 18:44 12/19/16 18:44 - General physical appearance well developed, well nourished, no distress - ENT normocephalic - Respiratory normal expansion, normal respiratory effort - Cardiovascular Cardiovascular exam: Present: RRR - Abdomen Abdomen general surgery: Present: soft, tender (appropriately tender along midline incision) Hernia: Present: none - Incision Incision: Present: clean and dry, intact - Integumentary Integumentary general surgery: Present: warm and dry - Neurologic Present: CN 2-12 grossly intact - Psychiatric Psychiatric general surgery: Present: A&Ox3 Date of admission: 12/19/16 23:13 Primary care physician: Jimbo De Paz MD Discharging clinician: Fercho Niño Anticipated date of discharge: 12/25/16 - Patient Status Disposition: Home, Self-Care Condition: Fair Functional capacity at discharge: independent ambulation Overall status at discharge: patient is progressing back to baseline - Discharge Instructions Follow Up With: Jimbo De Paz MD [Primary Care Provider] - 01/01/17 2:15 pm Additional Instructions: No heavy lifting for 4 more weeks diet as tolerated continue current bowel regimen if your incision/abdomen becomes red, or begins to drain purulent (pus-like) drainage, or stool, or you experience fevers, chills, nausea, vomiting, inability to eat or drink, chest pain, shortness of breath, worsening abdominal pain, or any symptoms you feel warrant evaluation, call the office or report to [facility] ED or nearest ED - Diet and Activity Activity: increase activity as tolerated - Hospital Course Hospital course: Ms. Parra is a 71 year old female wiht [facility] significant for osteoporosis, mitral valvular disease s/p annuloplasty, GERD, who presented with an acute abdomen. CT scan revealed pneumoperitoneum. She was taken to the OR for surgical exploration. Ex lap was negative. POD#1 - patient was kept NPO with schrader and NG tube and IVF running; POD#2 - patient was able to get out of bed to the chair; d/c'd schrader and NG tube , started on sips of clears POD#3 - patient was ambulatory, voiding on her own, and advance to full clears; d/c'd pleater and started on PO pain meds POD#4-#5 - advance to regular diet, having normal bowel function POD#6 - met discharge criteria was subsequently discharged home - Time Spent with Patient Total time spent providing and/or coordinating discharge services: 30min Greater than 30 minutes (Time spent discussing recovery, diet, activity, pain control, signs to suggest return for evaluation, follow up in clinic related to bowel and breast was greater than 30min) Procedures and tests throughout hospitalization: Procedure: exploratory laparotomy Tests: CT scan: demonstrating pneumoperitoneum Labs on day of discharge: none drawn - Impressions ITS Impressions KUB X-Ray 12/21/16 08:56 IMPRESSION: Nasogastric tube tip and proximal port in the gastric body. D/ / Ferny Tobias MD / Ferny Tobias MD Interpreting Provider: Ferny Tobias MD
[2016-12-25] MEDS: Metoprolol XL (24 HR) Succ 50 MG TAB.ER.24H PO SCH (09:26)
[2016-12-25] MEDS: Cholecalciferol (D-3) 1,000 UNIT TABLET PO SCH (09:26)
[2016-12-25] MEDS: Multivit/Ca/Min/Fe/FA 1 TAB TABLET PO SCH (09:26)
[2016-12-25] MEDS: Gabapentin 300 MG CAPSULE PO SCH (09:26)
[2016-12-25] MEDS: Aspirin Enteric Coated 81 MG Tablet PO SCH (09:26)
[2016-12-25] MEDS ORDERED: FLUARIX QUAD 2017-18 36MOS UP/PF 0.5 ML SYRINGE IM ONE (09:52)
== END 2016-12-25 11:40 | disposition home or self-care (01) | DRG 358 ==
LOC: EMEROO 18:36 → MERGE 23:13 → 3ANU 23:13
PROVIDERS: ADMIT Surgery; ATTEND Surgery